=== PATIENT | male | born 1940 ===

== ENCOUNTER 2016-08-04 17:23 | Outpatient (CLI) | payer OTHER ==
--- NOTE | 2016-08-05 09:41 | Diagnostic Imaging Report ---
CT scan of the brain without intravenous contrast HISTORY: Headache, trauma Total DLP equals 619 CTDI equals 34.3 Axial sections were obtained from the base of the skull to the vertex. There is enlargement of the ventricular system along with enlargement of cerebral sulci and subarachnoid cisterns reflecting atrophy. There is extensive hypodensity throughout the supratentorial periventricular white matter regions. No mass effect. The findings may be associated with chronic small vessel ischemic disease. Somewhat more focal hypodensity noted in left frontal parietal and right posterior parietal white matter regions. Changes associated with old infarcts cannot be excluded. No acute intracerebral hemorrhage. No extra-axial masses or abnormal fluid collections. Marked soft tissue swelling noted over the high left parietal region of the skull. No fractures. IMPRESSION: 1. Generalized cerebral atrophy 2. Extensive supratentorial periventricular and white matter changes. The findings may be associated with chronic small vessel ischemic disease 3. Somewhat more focal hypodensity without mass effect within the left frontoparietal and right posterior parietal regions. Changes may be associated with old infarcts. 4. Soft tissue swelling over the high left parietal region of the skull
== END 2016-08-04 18:00 | disposition short-term general hospital (02) ==
LOC: EEVIPCON 17:23 → RAD 17:23
PROVIDERS: ATTEND Emergency Medicine
DX: S09.90XA Unspecified injury of head, initial encounter (principal); X58.XXXA Exposure to other specified factors, initial encounter; Y93.89 Activity, other specified; Y92.89 Other specified places as the place of occurrence of the external cause; Y99.8 Other external cause status
CPT/HCPCS: 70450-TC